=== PATIENT | male | born 1950 | race Caucasian/White ===

== ENCOUNTER 2020-09-08 20:31 | Emergency (ER) | payer OTHER, MEDICAID ==
[~2020-09-08] VITALS: Ht 167.6 cm; Wt 90.3 kg
[2020-09-08 20:38] VITALS: BP 155/79; Ht 167.6 cm; Wt 90.3 kg
== END 2020-09-08 21:30 | disposition home or self-care (01) ==
LOC: ED 20:31
DX: L30.9 Dermatitis, unspecified (principal); I10 Essential (primary) hypertension; E11.9 Type 2 diabetes mellitus without complications